=== PATIENT | male | born 1975 | race Caucasian/White ===

== ENCOUNTER 2019-04-15 08:03 | Emergency (ER) | payer OTHER ==
[~2019-04-15] VITALS: Ht 185.4 cm; Wt 101.8 kg
[2019-04-15 09:02] VITALS: BP 137/97
== END 2019-04-15 09:58 | disposition home or self-care (01) ==
LOC: ED 09:52
DX: I80.01 Phlebitis and thrombophlebitis of superficial vessels of right lower extremity (principal)
CPT/HCPCS: 99284